=== PATIENT | male | born 1980 | race Caucasian/White ===

== ENCOUNTER 2016-11-08 13:15 | Inpatient (IN) | payer OTHER ==
[2016-11-08 15:16] VITALS: BMI 35.2
--- NOTE | 2016-11-08 16:30 | HP ---
COWS - Scale Resting Pulse: 0= [place] 80 or Below Sweatin=Flushed/Facial Moisture Restless Observation: 1= Difficult to Sit Still Pupil Size: 1= Pupils >than Normal Bone or Joint Aches: 2= Severe Diffuse Aches Runny Nose/ Eye Tearin= Nasal Congestion GI Upset > 30mins: 2= Nausea/Diarrhea Tremor Observation: 1= Tremor [place], Not Seen Yawning Observation: 0= None Anxiety or Irritability: 2=Irritable/Anxious Goose Flesh Skin: 0=Smooth Skin COWS Score: 12 CIWA Score - CIWA Score Nausea/Vomitin Muscle Tremors: 2 Anxiety: 3 Agitation: 3 Paroxysmal Sweats: 3 Orientation: 0-Oriented Tacttile Disturbances: 2-Mild Itch/Numbness/Burn Auditory Disturbances: 0-None Visual Disturbances: 0-None Headache: 0-None Present CIWA-Ar Total Score: 16 Admission ROS BHS - HPI Chief Complaint: I want to stop using drugs and i need help Allergies/Adverse Reactions: Allergies Allergy/AdvReac Type Severity Reaction Status Date / Time No Known Allergies Allergy Verified 11/08/16 16:33 History of Present Illness: 36 y/o m pt with a h/o heroin and alcohol dep. seeking detox. Exam Limitations: No Limitations - Ebola screening Have you traveled outside of the country in the last 21 days: No Have you had contact with anyone from an Ebola affected area: No Have you been sick,other than usual withdrawal symptoms: No Do you have a fever: No - Review of Systems Constitutional: Malaise, Night Sweats, Changes in sleep EENT: reports: Dental Problems (left upper lat incisor pain) Respiratory: reports: No Symptoms reported Cardiac: reports: No Symptoms Reported GI: reports: Nausea : reports: No Symptoms Reported Musculoskeletal: reports: Back Pain, Muscle Pain Integumentary: reports: No Symptoms Reported Endocrine: reports: No Symptoms Reported Hematology: reports: No Symptoms Reported Psychiatric: reports: Anxious, Depressed Other Systems: Reviewed and Negative Patient History - Patient Medical History Hx Anemia: No Hx Asthma: Yes (Currently on tx) Hx Chronic Obstructive Pulmonary Disease (COPD): No Hx Cancer: No Hx Cardiac Disorders: No Hx Congestive Heart Failure: No Hx Hypertension: No Hx Hypercholesterolemia: No Hx Pacemaker: No HX Cerebrovascular Accident: No Hx Seizures: Yes (alcohol/drug related X 1 IN 2006) Hx Diabetes: No Hx Gastrointestinal Disorders: No Hx Liver Disease: No Hx Genitourinary Disorders: No Hx Sexually Transmitted Disorders: No Hx Renal Disease (ESRD): No Hx Thyroid Disease: No Hx Human Immunodeficiency Virus (HIV): No (NEGATIVE 2 YRS AGO) Hx Hepatitis C: No Hx Depression: No Hx Suicide Attempt: No Hx Schizophrenia: No - Patient Surgical History Past Surgical History: Yes Hx Neurologic Surgery: No Hx Cataract Extraction: No Hx Cardiac Surgery: No Hx Lung Surgery: No Hx Breast Surgery: No Hx Breast Biopsy: No Hx Abdominal Surgery: Yes (UMBILLICAL HERNIA REPAIR IN 2009 [facility]) Hx Appendectomy: No Hx Cholecystectomy: No Hx Genitourinary Surgery: No Hx Section: No Hx Orthopedic Surgery: No Other Surgical History: PILONIDIAL CYST REMOVED IN 2004 [facility] Anesthesia Reaction: No - PPD History Date: 02/08/15 Results: 0 mm - Reproductive History Patient is a Female of Child Bearing Age (11 -55 yrs old): No - Smoking Cessation Smoking history: Current every day smoker Have you smoked in the past 12 months: Yes Aproximately how many cigarettes per day: 30 Cigars Per Day: 0 Hx Chewing Tobacco Use: No Initiated information on smoking cessation: Yes 'Breaking Loose' booklet given: 11/08/16 - Substance & Tx. History Hx Alcohol Use: Yes Hx Substance Use: Yes Substance Use Type: Alcohol, Cocaine, Heroin Hx Substance Use Treatment: Yes - Substances Abused Heroin Route: Injection Frequency: Daily Amount used: 10 bags Age of first use: 27 Date of Last Use: 11/08/16 Alcohol Route: Oral Frequency: Daily Amount used: 1/2 qt vodka/ 6 pk beer Age of first use: 14 Date of Last Use: 11/07/16 Crack Route: Smoking Frequency: Daily Amount used: $50 Age of first use: 20 Date of Last Use: 11/05/16 Family Disease History - Family Disease History Family History: Denies Admission Physical Exam BHS - Vital Signs Vital Signs: Vital Signs - 24 hr 11/08/16 15:14 Temperature 97.8 F Pulse Rate 74 Respiratory 20 Rate Blood Pressure 128/77 - Physical General Appearance: Yes: Disheveled, Obese, Sweating, Anxious HEENTM: Yes: EOMI, Hearing grossly Normal, Normocephalic, Normal Voice, MARIBEL, Other (2nd upper incisor dolor) Respiratory: Yes: Chest Non-Tender, Lungs Clear, Normal Breath Sounds, No Respiratory Distress Neck: Yes: Supple, Trachea in good position Breast: Yes: Within Normal Limits Cardiology: Yes: Regular Rhythm, Regular Rate, S1, S2 Abdominal: Yes: Non Tender, Flat, Soft, Increased Bowel Sounds Genitourinary: Yes: Within Normal Limits Back: Yes: Decreased Range of Motion Musculoskeletal: Yes: Back pain, Muscle Pain Neurological: Yes: quality control coordinator II-XII NML intact, Fully Oriented, Alert, Motor Strength 5/5, Normal Response Integumentary: Yes: Track Mccarthy Lymphatic: Yes: Within Normal Limits - Diagnostic (1) Alcohol dependence Current Visit: Yes Status: Chronic Qualifiers: Substance use status: uncomplicated Qualified Code(s): F10.20 - Alcohol dependence, uncomplicated (2) Asthma Current Visit: Yes Status: Chronic (3) Obesity Current Visit: Yes Status: Chronic Qualifiers: Obesity severity: unspecified obesity severity (4) Opiate dependence Current Visit: Yes Status: Chronic Qualifiers: Substance use status: uncomplicated Qualified Code(s): F11.20 - Opioid dependence, uncomplicated (5) Nicotine dependence Current Visit: Yes Status: Chronic Qualifiers: Nicotine product type: cigarettes Substance use status: uncomplicated Qualified Code(s): F17.210 - Nicotine dependence, cigarettes, uncomplicated (6) Toothache Current Visit: Yes Status: Chronic Cleared for Admission S - Detox or Rehab [facility] Level of Care: Medically Managed Detox Regimen/Protocol: Methadone/Librium S Breath Alcohol Content Breath Alcohol Content: 0 Urine Drug Screen - Results Urine Drug Screen Results: THC-Marijuana, BOBBY-Cocaine, OPI-Opiates, BZO- Benzodiazepines, MTD-Methadone, OXY-Oxycodone
[2016-11-08] MEDS ORDERED: guaiFENesin/D-METHORPHAN HB 10 ML UNIT-DOSE CUPS PO PRN (16:34)
[2016-11-08] MEDS ORDERED: MAG HYDROX/AL HYDROX/SIMETH 30 ML UNIT-DOSE CUP PO PRN (16:34)
[2016-11-08] MEDS ORDERED: MAGNESIUM CITRATE 300 ML BOTTLE PO PRN (16:34)
[2016-11-08] MEDS ORDERED: ACETAMINOPHEN 325 MG TABLET (FP) PO PRN (16:34)
[2016-11-08] MEDS ORDERED: hydrOXYzine PAMOATE 25 MG CAPSULE (FP) PO PRN (16:34)
[2016-11-08] MEDS ORDERED: MAGNESIUM HYDROX 2400MG/30ML ORAL SUSPENSION 30 ML CUP PO PRN (16:34)
[2016-11-08] MEDS ORDERED: MENTHOL/PHENOL 1 EACH UD MM PRN (16:34)
[2016-11-08] MEDS ORDERED: P-EPHED 60MG/TRIPROLIDI 2.5MG TABLET PO PRN (16:34)
[2016-11-08] MEDS ORDERED: LIDOCAINE VISCOUS 2% ORAL/TOP 20 ML UNIT-DOSE CUP MM PRN (16:56)
[2016-11-08] MEDS: chlordiazePOXIDE HCL 25 MG CAPSULE PO PRN (18:22)
[2016-11-08] MEDS ORDERED: METHADONE HCL 10 MG TABLET (FOR DETOX USE ONLY) PO ONE ×2 (18:30→23:00)
[2016-11-08] MEDS: THIAMINE HCL 100 MG TABLET (FP) PO SCH (22:16)
[2016-11-08] MEDS: diphenhydrAMINE HCL 50 MG CAPSULE PO PRN (22:16)
[2016-11-08] MEDS: chlordiazePOXIDE HCL 25 MG CAPSULE PO SCH (22:17)
[2016-11-09] MEDS: chlordiazePOXIDE HCL 25 MG CAPSULE PO SCH ×4 (05:37→23:01)
[2016-11-09] MEDS: chlordiazePOXIDE HCL 25 MG CAPSULE PO PRN ×3 (07:20→19:25)
[2016-11-09] MEDS ORDERED: TRIMETHOBENZAMIDE HCL 200MG/2ML INJ IM PRN (09:04)
[2016-11-09] MEDS ORDERED: METHADONE HCL 10 MG TABLET (FOR DETOX USE ONLY) PO SCH (10:00)
[2016-11-09 10:05] LABS: MCH 31.2 pg (25.7-33.7); MCHC 34.3 g/dl (32.0-35.9); PLATELET COUNT 397 K/MM3 (134-434); RDW 13.2 % (11.9-15.9); WHITE BLOOD COUNT 9.2 K/mm3 (4.0-10.0)
--- NOTE | 2016-11-09 10:10 | PN ---
[facility] CIWA - CIWA Score Nausea/Vomitin Muscle Tremors: 3 Anxiety: 3 Agitation: 3 Paroxysmal Sweats: 1-Minimal Palms Moist Orientation: 0-Oriented Tacttile Disturbances: 1-Very Mild Itch/Numbness Auditory Disturbances: 1-Very Mild Visual Disturbances: 1-Very Mild Sensitivity Headache: 2-Mild CIWA-Ar Total Score: 18 BHS COWS - Scale Resting Pulse: 2= [place] 101-120 Sweatin=Flushed/Facial Moisture Restless Observation: 3= Extraneous Movement Pupil Size: 1= Pupils >than Normal Bone or Joint Aches: 2= Severe Diffuse Aches Runny Nose/ Eye Tearin= Runny Nose/Eyes GI Upset > 30mins: 3= Vomiting/Diarrhea Tremor Observation of Outstretched Hands: 2= Slight Tremor Visible Yawning Observation: 1= 1-2x During Session Anxiety or Irritability: 2=Irritable/Anxious Goose Flesh Skin: 0=Smooth Skin COWS Score: 20 S Progress Note (SOAP) Subjective: ALERT,IRRITABLE,ANXIOUS,INTERRUPTED SLEEP,TREMOR,PAIN IN THE BODY AND BACK, VOMITING Objective: 11/09/16 10:07 Vital Signs Temperature 98.4 F 11/09/16 09:51 Pulse Rate 66 11/09/16 09:51 Respiratory Rate 20 11/09/16 09:51 Blood Pressure 123/80 11/09/16 09:51 O2 Sat by Pulse Oximetry (%) EKG NSR,NORMAL ECG LABS PENDING Assessment: 11/09/16 10:09 WITHDRAWAL SYMPTOM Plan: CONTINUE DETOX
[2016-11-09 10:11] LABS: ANION GAP 5 (8-16); CALCIUM 9.5 mg/dL (8.5-10.1); CO2 29 mmol/L (21-32); GLUCOSE,RANDOM 86 mg/dL (74-106)
[2016-11-09 10:15] LABS: ALK PHOS 135 U/L (45-117); BILIRUBIN,TOTAL 0.4 mg/dL (0.2-1.0); CREATININE 0.9 mg/dL (0.7-1.3); SGOT/AST 12 U/L (15-37); SGPT/ALT 21 U/L (12-78); TOT PROT 7.5 g/dl (6.4-8.2)
--- NOTE | 2016-11-09 10:23 | EKG ---
Test Reason : Blood Pressure : / mmHG Vent. Rate : 073 BPM Atrial Rate : 073 BPM P-R Int : 162 ms QRS Dur : 094 ms QT Int : 392 ms P-R-T Axes : 054 006 045 degrees QTc Int : 431 ms NORMAL SINUS RHYTHM NORMAL ECG NO PREVIOUS ECGS AVAILABLE Confirmed by DEMETRI CABRAL, LEX ([id number]) on 11/09/2016 10:23:42 AM Referred By: Confirmed By:LEX MOSQUERA MD
[2016-11-09] MEDS: PRENATAL VITAMINS W/ FOLIC ACID TABLET (FP) PO SCH (10:39)
[2016-11-09] MEDS: CYCLOBENZAPRINE HCL 10 MG TABLET (FP) PO PRN (10:40)
[2016-11-09] MEDS: NICOTINE 14 MG/24 HOURS TOPICAL PATCH TD SCH (10:41)
[2016-11-09] MEDS: LOPERAMIDE HCL 2 MG CAPSULE PO PRN ×2 (10:49→17:02)
[2016-11-09] MEDS ORDERED: INFLUENZA VACCINE 45 MCG/0.5 ML (MDV 16-17) IM ONE (12:00)
--- NOTE | 2016-11-09 12:54 | CONSULT ---
[facility] Psychiatric Consult - Data Date of interview: 11/09/16 Admission source: [facility] Identifying data: Readmission to [facility] for this 36 y/o male seeking detox treatment on for heroin and cocaine dependence.Patient is single without children,domiciled and unemployed. Substance Abuse History: - Smoking Cessation. Smoking history: Current every day smoker. Have you smoked in the past 12 months: Yes. Aproximately how many cigarettes per day: 30. Cigars Per Day: 0. Hx Chewing Tobacco Use: No. Initiated information on smoking cessation: Yes. 'Breaking Loose' booklet given : 11/08/16. - Substance & Tx. History. Hx Alcohol Use: Yes. Hx Substance Use : Yes. Substance Use Type: Alcohol, Cocaine, Heroin. Hx Substance Use Treatment: Yes. - Substances Abused. Heroin. Route: Injection. Frequency : Daily. Amount used: 10 bags. Age of first use: 27. Date of Last Use: . Alcohol. Route: Oral. Frequency: Daily. Amount used: 1/2 qt vodka/ 6 pk beer. Age of first use: 14. Date of Last Use: 11/07/16. Crack. Route: Smoking. Frequency: Daily. Amount used: $50. Age of first use: 20. Date of Last Use: 11/05/16. Confirmed by patient. Medical History: Remarkable for a history of bronchial asthma,seizure disorder ( drug related) and umbilical herniorraphy (2010). Psychiatric History: Diagnosed with MDD and ADHD.No reported history of psychiatric hospitalizations.Mr Aranda indicates that he has no contact with psychiatrists and that he relies on his primary care physician for medications refills.No history of suicide attempts. Physical/Sexual Abuse/Trauma History: Patient denies. Additional Comment: Urine Drug Screen Results: THC-Marijuana, BOBBY-Cocaine, OPI- Opiates, BZO-Benzodiazepines, MTD-Methadone, OXY-Oxycodone.Noted. Mental Status Exam - Mental Status Exam Alert and Oriented to: Time, Place, Person Cognitive Function: Good Patient Appearance: Well Groomed Mood: Hopeful, Euthymic Affect: Appropriate, Normal Range Patient Behavior: Fatigued, Appropriate, Cooperative Speech Pattern: Clear Voice Loudness: Normal Thought Process: Goal Oriented Thought Disorder: Not Present Hallucinations: Denies Suicidal Ideation: Denies Homicidal Ideation: Denies Insight/Judgement: Fair Sleep: Fair Appetite: Good Muscle strength/Tone: Normal Gait/Station: Normal Psychiatric Findings - Problem List ([place] 1, 2,3) (1) Alcohol dependence Current Visit: Yes Status: Acute Qualifiers: Substance use status: uncomplicated Qualified Code(s): F10.20 - Alcohol dependence, uncomplicated (2) Opiate dependence Current Visit: Yes Status: Acute Qualifiers: Substance use status: uncomplicated Qualified Code(s): F11.20 - Opioid dependence, uncomplicated (3) Sedative dependence Current Visit: Yes Status: Active (4) Marijuana dependence Current Visit: Yes Status: Acute (5) Nicotine dependence Current Visit: Yes Status: Chronic Qualifiers: Nicotine product type: cigarettes Substance use status: uncomplicated Qualified Code(s): F17.210 - Nicotine dependence, cigarettes, uncomplicated (6) Cocaine dependence Current Visit: Yes Status: Acute (7) ADHD (attention deficit hyperactivity disorder) Current Visit: Yes Status: Chronic Comment: Self-report. (8) Depressive disorder Current Visit: Yes Status: Chronic Comment: Self-report. (9) Asthma Current Visit: Yes Status: Chronic (10) Obesity Current Visit: Yes Status: Chronic Qualifiers: Obesity severity: unspecified obesity severity - Initial Treatment Plan Initial Treatment Plan: Psychoeducation.Detoxification.Wellbutrin XL 300 mg po daily.Adderall not formulary.Will switch to ritalin as an alternate if patient allows.Side effects/benefits discussed with patient.Made aware of risk of seizures (wellbutrin).Patient agrees with plan.Observation.
[2016-11-09] MEDS: IBUPROFEN 400 MG TABLET (FP) PO PRN (13:13)
[2016-11-09 14:09] LABS: PH,URINE 7.5 (5.0-8.0); URINE APPEARANCE CLEAR; URINE BILIRUBIN NEGATIVE (NEGATIVE); URINE BLOOD NEGATIVE (NEGATIVE); URINE COLOR YELLOW; URINE GLUCOSE (UA) NEGATIVE (NEGATIVE); URINE KETONE TRACE (NEGATIVE); URINE LEUK ESTERASE NEGATIVE (NEGATIVE); URINE NITRITE NEGATIVE (NEGATIVE); URINE PROTEIN TRACE (NEGATIVE); URINE UROBILINOGEN 0.2 E.U/dl E.U./dl (0.2-1.0)
[2016-11-09 14:24] LABS: HIV 1 & 2 AB NEGATIVE; HIV 1 AGp24 NEGATIVE
[2016-11-09] MEDS: NICOTINE POLACRILEX 4 MG GUM BC PRN (19:23)
[2016-11-09] MEDS: cloNIDine HCL 0.1 MG TABLET PO SCH (23:00)
[2016-11-09] MEDS: THIAMINE HCL 100 MG TABLET (FP) PO SCH (23:01)
[2016-11-10] MEDS: chlordiazePOXIDE HCL 25 MG CAPSULE PO SCH ×3 (05:48→17:16)
[2016-11-10] MEDS: IBUPROFEN 400 MG TABLET (FP) PO PRN ×2 (05:51→17:15)
[2016-11-10] MEDS: LOPERAMIDE HCL 2 MG CAPSULE PO PRN (05:51)
[2016-11-10] MEDS: METHYLPHENIDATE HCL 5 MG TABLET PO SCH ×2 (07:06→13:17)
[2016-11-10] MEDS: chlordiazePOXIDE HCL 25 MG CAPSULE PO PRN ×2 (08:46→13:17)
[2016-11-10] MEDS ORDERED: ONDANSETRON *ODT* 4 MG TABLET SL PRN (09:02)
--- NOTE | 2016-11-10 10:35 | PN ---
[facility] CIWA - CIWA Score Nausea/Vomitin Muscle Tremors: 3 Anxiety: 3 Agitation: 2 Paroxysmal Sweats: 1-Minimal Palms Moist Orientation: 0-Oriented Tacttile Disturbances: 1-Very Mild Itch/Numbness Auditory Disturbances: 1-Very Mild Visual Disturbances: 1-Very Mild Sensitivity Headache: 2-Mild CIWA-Ar Total Score: 17 BHS COWS - Scale Resting Pulse: 1= [place] 81-100 Sweatin= Chills/Flushing Restless Observation: 3= Extraneous Movement Pupil Size: 1= Pupils >than Normal Bone or Joint Aches: 2= Severe Diffuse Aches Runny Nose/ Eye Tearin= Runny Nose/Eyes GI Upset > 30mins: 3= Vomiting/Diarrhea Tremor Observation of Outstretched Hands: 2= Slight Tremor Visible Yawning Observation: 1= 1-2x During Session Anxiety or Irritability: 2=Irritable/Anxious Goose Flesh Skin: 0=Smooth Skin COWS Score: 18 [facility] Progress Note (SOAP) Subjective: ALERT,IRRITABLE,ANXIOUS,INTERRUPTED SLEEP,TREMOR,PAIN IN THE BODY AND BACK Objective: 11/10/16 10:34 Vital Signs Temperature 97.7 F 11/10/16 10:23 Pulse Rate 91 H 11/10/16 10:23 Respiratory Rate 20 11/10/16 10:23 Blood Pressure 118/75 11/10/16 10:23 O2 Sat by Pulse Oximetry (%) Laboratory Last Values WBC 9.2 K/mm3 (4.0-10.0) D 11/09/16 06:00 RBC 4.50 M/mm3 (4.00-5.60) 11/09/16 06:00 Hgb 14.0 GM/dL (11.7-16.9) 11/09/16 06:00 Hct 41.0 % (35.4-49) 11/09/16 06:00 MCV 91.0 fl (80-96) 11/09/16 06:00 MCHC 34.3 g/dl (32.0-35.9) 11/09/16 06:00 RDW 13.2 % (11.9-15.9) 11/09/16 06:00 Plt Count 397 K/MM3 (134-434) 11/09/16 06:00 MPV 8.0 fl (7.5-11.1) 11/09/16 06:00 Sodium 138 mmol/L (136-145) 11/09/16 06:00 Potassium 3.7 mmol/L (3.5-5.1) 11/09/16 06:00 Chloride 104 mmol/L (98-107) 11/09/16 06:00 Carbon Dioxide 29 mmol/L (21-32) 11/09/16 06:00 Anion Gap 5 (8-16) L 11/09/16 06:00 BUN 10 mg/dL (7-18) 11/09/16 06:00 Creatinine 0.9 mg/dL (0.7-1.3) 11/09/16 06:00 Creat Clearance w eGFR > 60 (>60) 11/09/16 06:00 Random Glucose 86 mg/dL (74-106) 11/09/16 06:00 Calcium 9.5 mg/dL (8.5-10.1) 11/09/16 06:00 Total Bilirubin 0.4 mg/dL (0.2-1.0) 11/09/16 06:00 AST 12 U/L (15-37) L D 11/09/16 06:00 ALT 21 U/L (12-78) D 11/09/16 06:00 Alkaline Phosphatase 135 U/L (45-117) H 11/09/16 06:00 Total Protein 7.5 g/dl (6.4-8.2) 11/09/16 06:00 Albumin 4.0 g/dl (3.4-5.0) 11/09/16 06:00 Urine Color Yellow 11/09/16 12:00 Urine Appearance Clear 11/09/16 12:00 Urine pH 7.5 (5.0-8.0) D 11/09/16 12:00 Ur Specific [place] 1.025 (1.001-1.035) 11/09/16 12:00 Urine Protein Trace (NEGATIVE) H 11/09/16 12:00 Urine Glucose (UA) Negative (NEGATIVE) 11/09/16 12:00 Urine Ketones Trace (NEGATIVE) H 11/09/16 12:00 Urine Blood Negative (NEGATIVE) 11/09/16 12:00 Urine Nitrite Negative (NEGATIVE) 11/09/16 12:00 Urine Bilirubin Negative (NEGATIVE) 11/09/16 12:00 Urine Urobilinogen 0.2 e.u/dl E.U./dl (0.2-1.0) 11/09/16 12:00 Ur Leukocyte Esterase Negative (NEGATIVE) 11/09/16 12:00 RPR Titer Nonreactive (NONREACTIVE) 11/09/16 06:00 HIV 1&2 Antibody Screen Negative 11/09/16 11:55 HIV P24 Antigen Negative 11/09/16 11:55 Assessment: 11/10/16 10:35 WITHDRAWAL SYMPTOM Plan: CONTINUE DETOX
[2016-11-10] MEDS: NICOTINE 14 MG/24 HOURS TOPICAL PATCH TD SCH (10:56)
[2016-11-10] MEDS: METHADONE HCL 5 MG TABLET (FOR DETOX USE ONLY) PO SCH (10:56)
[2016-11-10] MEDS: cloNIDine HCL 0.1 MG TABLET PO SCH ×2 (10:56→22:42)
[2016-11-10] MEDS: PRENATAL VITAMINS W/ FOLIC ACID TABLET (FP) PO SCH (10:56)
[2016-11-10] MEDS: NICOTINE POLACRILEX 4 MG GUM BC PRN ×3 (11:07→17:16)
[2016-11-10] MEDS: CYCLOBENZAPRINE HCL 10 MG TABLET (FP) PO PRN ×2 (13:17→22:44)
[2016-11-10] MEDS: THIAMINE HCL 100 MG TABLET (FP) PO SCH (22:42)
[2016-11-10] MEDS: chlordiazePOXIDE 5 MG CAPSULE PO SCH (22:42)
[2016-11-10] MEDS: diphenhydrAMINE HCL 50 MG CAPSULE PO PRN (22:45)
[2016-11-11] MEDS: chlordiazePOXIDE 5 MG CAPSULE PO SCH ×2 (05:17→10:29)
[2016-11-11] MEDS: CYCLOBENZAPRINE HCL 10 MG TABLET (FP) PO PRN (05:18)
[2016-11-11] MEDS: METHYLPHENIDATE HCL 5 MG TABLET PO SCH ×2 (07:34→08:26)
[2016-11-11] MEDS: METHADONE HCL 5 MG TABLET (FOR DETOX USE ONLY) PO SCH (10:29)
[2016-11-11] MEDS: cloNIDine HCL 0.1 MG TABLET PO SCH (10:29)
[2016-11-11] MEDS: PRENATAL VITAMINS W/ FOLIC ACID TABLET (FP) PO SCH (10:29)
[2016-11-11] MEDS: NICOTINE POLACRILEX 4 MG GUM BC PRN (10:30)
[2016-11-11] MEDS: NICOTINE 14 MG/24 HOURS TOPICAL PATCH TD SCH (10:30)
--- NOTE | 2016-11-11 12:35 | DS ---
[facility] Detox Discharge Summary Admission Date: 11/08/16 Discharge Date: 11/11/16 - History Present History: Alcohol Dependence, Cannabis Dependence, Opioid Dependence Pertinent Past History: ASTHMA ADHD OBESITY - Physical Exam Results Vital Signs: Vital Signs Temperature 96.6 F L 11/11/16 09:41 Pulse Rate 64 11/11/16 09:41 Respiratory Rate 18 11/11/16 09:41 Blood Pressure 115/77 11/11/16 09:41 O2 Sat by Pulse Oximetry (%) Pertinent Admission Physical Exam Findings: WITHDRAWAL SX. Vital Signs - 8 hr 11/11/16 11/11/16 06:30 09:41 Temperature 96.1 F L 96.6 F L Pulse Rate 64 64 Respiratory 18 18 Rate Blood Pressure 131/90 115/77 Laboratory Tests 11/09/16 11/09/16 11/09/16 06:00 06:00 06:00 WBC 9.2 D RBC 4.50 Hgb 14.0 Hct 41.0 MCV 91.0 MCHC 34.3 RDW 13.2 Plt Count 397 MPV 8.0 Sodium 138 Potassium 3.7 Chloride 104 Carbon Dioxide 29 Anion Gap 5 L BUN 10 Creatinine 0.9 Creat Clearance w eGFR > 60 Random Glucose 86 Calcium 9.5 Total Bilirubin 0.4 AST 12 L D ALT 21 D Alkaline Phosphatase 135 H Total Protein 7.5 Albumin 4.0 Urine Color Urine Appearance Urine pH Ur Specific [place] Urine Protein Urine Glucose (UA) Urine Ketones Urine Blood Urine Nitrite Urine Bilirubin Urine Urobilinogen Ur Leukocyte Esterase RPR Titer Nonreactive HIV 1&2 Antibody Screen HIV P24 Antigen 11/09/16 11/09/16 11:55 12:00 WBC RBC Hgb Hct MCV MCHC RDW Plt Count MPV Sodium Potassium Chloride Carbon Dioxide Anion Gap BUN Creatinine Creat Clearance w eGFR Random Glucose Calcium Total Bilirubin AST ALT Alkaline Phosphatase Total Protein Albumin Urine Color Yellow Urine Appearance Clear Urine pH 7.5 D Ur Specific [place] 1.025 Urine Protein Trace H Urine Glucose (UA) Negative Urine Ketones Trace H Urine Blood Negative Urine Nitrite Negative Urine Bilirubin Negative Urine Urobilinogen 0.2 e.u/dl Ur Leukocyte Esterase Negative RPR Titer HIV 1&2 Antibody Screen Negative HIV P24 Antigen Negative LABS NOTED - Medication Discharge Medications: Ambulatory Orders Albuterol Sulfate Inhaler - [Ventolin Hfa Inhaler -] 2 inh PO Q4H PRN 11/08/16 Alprazolam [Xanax] 1 mg PO QID 11/08/16 Bupropion HCl [Wellbutrin Xl -] 300 mg PO DAILY 11/08/16 Dextroamphetamine/Amphetamine [Adderall 10 mg Tablet] 30 mg PO TID 11/08/16 Bupropion HCl [Wellbutrin Xl] 300 mg PO DAILY #30 tab.er.24h 11/09/16 - Diagnosis (1) ADHD (attention deficit hyperactivity disorder) Current Visit: Yes Status: Chronic (2) Asthma Current Visit: Yes Status: Chronic (3) Obesity Current Visit: Yes Status: Chronic Qualifiers: Obesity severity: unspecified obesity severity (4) Alcohol dependence with uncomplicated withdrawal Current Visit: Yes Status: Acute (5) Opioid dependence with withdrawal Current Visit: Yes Status: Acute - AMA Did Patient Leave Against Medical Advice: Yes
[2016-11-11 13:16] VITALS: BP 128/78; PULSE 65; TEMP 99.3
[2016-11-11] MEDS ORDERED: chlordiazePOXIDE HCL 10 MG CAPSULE PO SCH (23:00)
[2016-11-12] MEDS ORDERED: METHADONE HCL 10 MG TABLET (FOR DETOX USE ONLY) PO SCH (10:00)
[2016-11-13] MEDS ORDERED: METHADONE HCL 5 MG TABLET (FOR DETOX USE ONLY) PO SCH (06:00)
== END 2016-11-11 12:40 | disposition left against medical advice (07) | DRG 770 ==
LOC: YASAS 13:15 → Y3N 17:18
PROVIDERS: ADMIT Internal Medicine; ATTEND Internal Medicine
PROC: HZ2ZZZZ Detoxification Services for Substance Abuse Treatment (ICD-10-PCS; principal; 2016-11-08)
DX: F11.23 Opioid dependence with withdrawal (principal); F10.230 Alcohol dependence with withdrawal, uncomplicated; F13.20 Sedative, hypnotic or anxiolytic dependence, uncomplicated; F14.20 Cocaine dependence, uncomplicated; F12.20 Cannabis dependence, uncomplicated; F17.210 Nicotine dependence, cigarettes, uncomplicated; F90.9 Attention-deficit hyperactivity disorder, unspecified type; F32.9 Major depressive disorder, single episode, unspecified; J45.909 Unspecified asthma, uncomplicated; E66.9 Obesity, unspecified; Z68.35 Body mass index [BMI] 35.0-35.9, adult; Z86.69 Personal history of other diseases of the nervous system and sense organs; K08.89 Other specified disorders of teeth and supporting structures
CPT/HCPCS: 36415; 80053; 81003; 85027; 86593; 87389; 93005; 93010

== ENCOUNTER 2017-01-22 11:48 | Inpatient (IN) | payer OTHER ==
[2017-01-22 12:22] VITALS: BMI 35.3
--- NOTE | 2017-01-22 14:35 | HP ---
COWS - Scale Resting Pulse: 1= [place] 81-100 Sweatin= Chills/Flushing Restless Observation: 3= Extraneous Movement Pupil Size: 1= Pupils >than Normal Bone or Joint Aches: 2= Severe Diffuse Aches Runny Nose/ Eye Tearin= None GI Upset > 30mins: 3= Vomiting/Diarrhea Tremor Observation: 2= Slight Tremor Visible Yawning Observation: 1= 1-2x During Session Anxiety or Irritability: 2=Irritable/Anxious Goose Flesh Skin: 3=Piloerection COWS Score: 19 CIWA Score - CIWA Score Nausea/Vomitin Muscle Tremors: 3 Anxiety: 3 Agitation: 4-Moderately Restless Paroxysmal Sweats: 3 Orientation: 0-Oriented Tacttile Disturbances: 3-Moderate Itch/Numb/Burn Auditory Disturbances: 2-Mild Harshness/Frighten Visual Disturbances: 0-None Headache: 2-Mild CIWA-Ar Total Score: 25 Admission ROS BHS - HPI Chief Complaint: "I need to get this monkey off my back. I am just tired of being this way." Pt. is here to Detox from Alcohol and Heroin. Allergies/Adverse Reactions: Allergies Allergy/AdvReac Type Severity Reaction Status Date / Time No Known Allergies Allergy Verified 01/22/17 12:55 History of Present Illness: Pt. is a 36 YO male here to Detox from Alcohol and Heroin. Pt. has had several previous Detox admissions at [facility]. Pt. also uses Cocaine on a daily basis. Exam Limitations: No Limitations - Ebola screening Have you traveled outside of the country in the last 21 days: No Have you had contact with anyone from an Ebola affected area: No Have you been sick,other than usual withdrawal symptoms: No Do you have a fever: No - Review of Systems Constitutional: Chills, Diaphoresis, Fever, Malaise, Night Sweats, Changes in sleep EENT: reports: Other (4 Broken teeth.) Respiratory: reports: Productive cough (Occasional.) Cardiac: reports: No Symptoms Reported GI: reports: Diarrhea, Nausea, Vomiting, Other (Difficulty chewing due to Broken teeth.) : reports: No Symptoms Reported Musculoskeletal: reports: Back Pain, Joint Stiffness Integumentary: reports: No Symptoms Reported Neuro: reports: Headache, Numbness (Radiates Down Right Leg.), Tingling ( Radiates Down Right Leg.), Tremors Endocrine: reports: No Symptoms Reported Hematology: reports: No Symptoms Reported Psychiatric: reports: Judgement Intact, Mood/Affect Appropiate, Orientated x3, Anxious, Depressed (On meds.) Other Systems: Reviewed and Negative Patient History - Patient Medical History Hx Anemia: No Hx Asthma: Yes (Uses Albuterol Inhaler.) Hx Chronic Obstructive Pulmonary Disease (COPD): No Hx Cancer: No Hx Cardiac Disorders: No Hx Congestive Heart Failure: No Hx Hypertension: No Hx Hypercholesterolemia: No Hx Pacemaker: No HX Cerebrovascular Accident: No Hx Seizures: No Hx Dementia: No Hx Diabetes: No Hx Gastrointestinal Disorders: No Hx Liver Disease: No Hx Genitourinary Disorders: No Hx Sexually Transmitted Disorders: No Hx Renal Disease (ESRD): No Hx Thyroid Disease: No Hx Human Immunodeficiency Virus (HIV): No (Last Tested: 10/2016: NEGATIVE) Hx Hepatitis C: No (Last Tested: 10/2016: NEGATIVE) Hx Depression: Yes (On med.) Hx Suicide Attempt: No (PATIENT DENIES CURRENT SI / HI.) Hx Bipolar Disorder: No Hx Schizophrenia: No Other Medical History: Pleural Effusion w/ Pneumonia: 08/2013-09/2013, Treated. - Patient Surgical History Past Surgical History: Yes Hx Neurologic Surgery: No Hx Cataract Extraction: No Hx Cardiac Surgery: No Hx Lung Surgery: No (Intubation, Chest Tube: 2012.) Hx Breast Surgery: No Hx Breast Biopsy: No Hx Abdominal Surgery: Yes (UMBILLICAL HERNIA REPAIR IN 2009 [facility]) Hx Appendectomy: No Hx Cholecystectomy: No Hx Genitourinary Surgery: No Hx Section: No Hx Orthopedic Surgery: No Other Surgical History: PILONIDIAL CYST REMOVED IN 2004 [place] Anesthesia Reaction: No - PPD History Previous Implant?: Yes Documented Results: Negative w/o proof Implanted On Prior R Admission?: Yes Date: 02/08/15 Results: 0 mm PPD to be Administered?: Yes - Reproductive History Patient is a Female of Child Bearing Age (11 -55 yrs old): No (PATIENT IS MALE.) - Smoking Cessation Smoking history: Current every day smoker Have you smoked in the past 12 months: Yes Aproximately how many cigarettes per day: 10 Cigars Per Day: 0 Hx Chewing Tobacco Use: No Initiated information on smoking cessation: Yes 'Breaking Loose' booklet given: 03/26/17 (GIVEN ON UNIT.) - Substance & Tx. History Hx Alcohol Use: Yes Hx Substance Use: Yes Substance Use Type: Alcohol, Cocaine, Heroin, Prescribed (Xanax: 1 mg QID; Vicodin: 10 mg QID.) Hx Substance Use Treatment: Yes - Substances Abused Heroin Route: Injection Frequency: Daily Amount used: 3-4 bags Age of first use: 27 Date of Last Use: 01/22/17 Crack Route: Smoking Frequency: 1-3 times last 30 days Amount used: $100 Age of first use: 17 Date of Last Use: 01/19/17 Alcohol Route: Oral Frequency: 3-6 times per week Amount used: beer 12 oz, 6-12 pack Age of first use: 15 Date of Last Use: 01/20/17 Family Disease History - Family Disease History Family Disease History: Diabetes: Grandparent (Alzheimer's Dementia), Sister ( Gestational DM only.), Other: Grandparent Admission Physical Exam S - Vital Signs Vital Signs: Vital Signs - 24 hr 01/22/17 12:19 Temperature 97.2 F L Pulse Rate 88 Respiratory 18 Rate Blood Pressure 128/80 - Physical General Appearance: Yes: Nourished, Appropriately Dressed, Mild Distress, Tremorous, Anxious HEENTM: Yes: Hearing grossly Normal, Normocephalic, Normal Voice, MARIBEL, Pharynx Normal Respiratory: Yes: Chest Non-Tender, Lungs Clear, No Respiratory Distress Neck: Yes: No masses,lesions,Nodules, Supple, Trachea in good position Breast: Yes: Breast Exam Deferred Cardiology: Yes: Regular Rhythm, Regular Rate, S1, S2 Abdominal: Yes: Normal Bowel Sounds, Non Tender, Soft, Protuberent Genitourinary: Yes: Within Normal Limits Back: Yes: Decreased Range of Motion Musculoskeletal: Yes: Gait Steady, Back pain, Muscle Pain Extremities: Yes: Tremors Neurological: Yes: Fully Oriented, Alert, Normal Mood/Affect, Normal Response Integumentary: Yes: Normal Color, Dry, Warm, Track Mccarthy (Right Forearm and hand , No signs of infection noted at any site.) Lymphatic: Yes: Within Normal Limits - Diagnostic (1) Opioid dependence with withdrawal Current Visit: Yes Status: Acute (2) ADHD (attention deficit hyperactivity disorder) Current Visit: Yes Status: Chronic Qualifiers: Attention deficit-hyperactivity disorder type: unspecified Qualified Code(s): F90.9 - Attention-deficit hyperactivity disorder, unspecified type Comment: Self-report. (3) Asthma Current Visit: Yes Status: Chronic (4) Depressive disorder Current Visit: Yes Status: Chronic Comment: Self-report. (5) Nicotine dependence Current Visit: Yes Status: Chronic Qualifiers: Nicotine product type: cigarettes Substance use status: uncomplicated Qualified Code(s): F17.210 - Nicotine dependence, cigarettes, uncomplicated (6) Obesity Current Visit: Yes Status: Chronic Qualifiers: Obesity severity: unspecified obesity severity (7) Broken teeth Current Visit: Yes Status: Acute Qualifiers: Encounter type: initial encounter Fracture type: closed Qualified Code(s): S02.5XXA - Fracture of tooth (traumatic), initial encounter for closed fracture (8) Herniation of lumbar intervertebral disc with radiculopathy Current Visit: Yes Status: Chronic (9) Alcohol use disorder Current Visit: Yes Status: Chronic (10) Sedative, hypnotic or anxiolytic dependence with withdrawal, uncomplicated Current Visit: Yes Status: Acute (11) Cocaine dependence, uncomplicated Current Visit: Yes Status: Acute Cleared for Admission [facility] - Detox or Rehab [facility] Level of Care: Medically Managed (ADVISED PATIENT TO FOLLOW-UP WITH BRICK SETTER OPERATOR / REHAB MEDICAL PROVIDER AFTER DISCHARGE FROM DETOX FOR GNERAL MEDICAL ASSESSMENT. ) Detox Regimen/Protocol: Methadone/Valium S Breath Alcohol Content Breath Alcohol Content: 0 Urine Drug Screen - Results Drug Screen Negative: No Urine Drug Screen Results: THC-Marijuana, BOBBY-Cocaine, OPI-Opiates, BZO- Benzodiazepines, MTD-Methadone, OXY-Oxycodone
[2017-01-22] MEDS ORDERED: IBUPROFEN 400 MG TABLET (FP) PO PRN (15:33)
[2017-01-22] MEDS ORDERED: MAGNESIUM HYDROX 2400MG/30ML ORAL SUSPENSION 30 ML CUP PO PRN (15:33)
[2017-01-22] MEDS ORDERED: LOPERAMIDE HCL 2 MG CAPSULE PO PRN (15:33)
[2017-01-22] MEDS ORDERED: MAGNESIUM CITRATE 300 ML BOTTLE PO PRN (15:33)
[2017-01-22] MEDS ORDERED: P-EPHED 60MG/TRIPROLIDI 2.5MG TABLET PO PRN (15:33)
[2017-01-22] MEDS ORDERED: guaiFENesin/D-METHORPHAN HB 10 ML UNIT-DOSE CUPS PO PRN (15:33)
[2017-01-22] MEDS ORDERED: diphenhydrAMINE HCL 50 MG CAPSULE PO PRN (15:33)
[2017-01-22] MEDS ORDERED: METHADONE HCL 10 MG TABLET (FOR DETOX USE ONLY) PO ONE ×2 (15:33→23:00)
[2017-01-22] MEDS ORDERED: diazePAM 5 MG TABLET PO ONE (15:33)
[2017-01-22] MEDS ORDERED: MENTHOL/PHENOL 1 EACH UD MM PRN (15:33)
[2017-01-22] MEDS ORDERED: ACETAMINOPHEN 325 MG TABLET (FP) PO PRN (15:33)
[2017-01-22] MEDS ORDERED: diazePAM 5 MG TABLET PO PRN (15:33)
[2017-01-22] MEDS ORDERED: MAG HYDROX/AL HYDROX/SIMETH 30 ML UNIT-DOSE CUP PO PRN (15:33)
[2017-01-22] MEDS ORDERED: hydrOXYzine PAMOATE 50 MG CAPSULE (FP) PO PRN (15:33)
[2017-01-22] MEDS ORDERED: CYCLOBENZAPRINE HCL 10 MG TABLET (FP) PO PRN (15:42)
[2017-01-22] MEDS ORDERED: ALBUTEROL SO4 6.7 GM HFA INHALER IH PRN (15:44)
[2017-01-22] MEDS ORDERED: TUBERCULIN PPD 5 TU/0.1ML VIAL ID ONE (16:38)
[2017-01-22] MEDS: NICOTINE POLACRILEX 2 MG GUM BC PRN ×3 (17:01→22:34)
[2017-01-22] MEDS: NICOTINE 21 MG/24 HOURS TOPICAL PATCH TD SCH (17:05)
[2017-01-22 17:27] LABS: URINE APPEARANCE CLEAR; URINE BILIRUBIN NEGATIVE (NEGATIVE); URINE BLOOD NEGATIVE (NEGATIVE); URINE COLOR DKYELLOW; URINE GLUCOSE (UA) NEGATIVE (NEGATIVE); URINE KETONE NEGATIVE (NEGATIVE); URINE LEUK ESTERASE NEGATIVE (NEGATIVE); URINE NITRITE NEGATIVE (NEGATIVE); URINE PROTEIN NEGATIVE (NEGATIVE); URINE UROBILINOGEN NEGATIVE E.U./dl (0.2-1.0)
[2017-01-22] MEDS ORDERED: THIAMINE HCL 100 MG TABLET (FP) PO SCH (22:00)
[2017-01-22] MEDS: diazePAM 5 MG TABLET PO SCH (22:31)
[2017-01-23] MEDS: diazePAM 5 MG TABLET PO SCH (05:41)
[2017-01-23 09:50] LABS: MCH 30.2 pg (25.7-33.7); MCHC 33.5 g/dl (32.0-35.9); MEAN CELL VOLUME 90.2 fl (80-96); PLATELET COUNT 283 K/MM3 (134-434); WHITE BLOOD COUNT 4.4 K/mm3 (4.0-10.0)
[2017-01-23] MEDS ORDERED: PRENATAL VITAMINS W/ FOLIC ACID TABLET (FP) PO SCH (10:00)
[2017-01-23] MEDS ORDERED: METHADONE HCL 10 MG TABLET (FOR DETOX USE ONLY) PO SCH (10:00)
[2017-01-23] MEDS ORDERED: ONDANSETRON *ODT* 4 MG TABLET SL PRN (10:04)
[2017-01-23] MEDS ORDERED: chlordiazePOXIDE HCL 25 MG CAPSULE PO PRN (10:13)
--- NOTE | 2017-01-23 10:13 | PN ---
[facility] CIWA - CIWA Score Nausea/Vomitin-No Nausea/No Vomiting Muscle Tremors: 4-Moderate,w/Arms Extend Anxiety: 4-Mod. Anxious/Guarded Agitation: 4-Moderately Restless Paroxysmal Sweats: 3 Orientation: 0-Oriented Tacttile Disturbances: 0-None Auditory Disturbances: 0-None Visual Disturbances: 0-None Headache: 0-None Present CIWA-Ar Total Score: 15 S COWS - Scale Resting Pulse: 0= [place] 80 or Below Sweatin=Flushed/Facial Moisture Restless Observation: 1= Difficult to Sit Still Pupil Size: 0= Normal to Room Light Bone or Joint Aches: 1= Mild Discomfort Runny Nose/ Eye Tearin= Nasal Congestion GI Upset > 30mins: 2= Nausea/Diarrhea Tremor Observation of Outstretched Hands: 2= Slight Tremor Visible Yawning Observation: 1= 1-2x During Session Anxiety or Irritability: 2=Irritable/Anxious Goose Flesh Skin: 0=Smooth Skin COWS Score: 12 S Progress Note (SOAP) Subjective: Anxiety,tremors,sweating,interrupted sleep,muscle aches/spasm. Objective: 01/23/17 10:10 Vital Signs - 8 hr 01/23/17 01/23/17 03:50 06:14 Temperature 96 F L Pulse Rate 76 Respiratory 18 18 Rate Blood Pressure 127/91 Laboratory Tests 01/22/17 01/23/17 17:00 07:00 WBC 4.4 D RBC 5.04 Hgb 15.2 Hct 45.5 MCV 90.2 MCHC 33.5 RDW 14.0 Plt Count 283 D MPV 8.0 Urine Color Dkyellow Urine Appearance Clear Urine pH 5.0 D Ur Specific [place] 1.027 Urine Protein Negative Urine Glucose (UA) Negative Urine Ketones Negative Urine Blood Negative Urine Nitrite Negative Urine Bilirubin Negative Urine Urobilinogen Negative Ur Leukocyte Esterase Negative labs noted Assessment: 01/23/17 10:11 Withdrawal sx. Plan: Continue detox
[2017-01-23 10:19] LABS: ALBUMIN 3.9 g/dl (3.4-5.0); ALK PHOS 112 U/L (45-117); ANION GAP 9 (8-16); BILIRUBIN,TOTAL 0.5 mg/dL (0.2-1.0); CALCIUM 9.3 mg/dL (8.5-10.1); CO2 28 mmol/L (21-32); CREATININE 0.7 mg/dL (0.7-1.3); GLUCOSE,RANDOM 98 mg/dL (74-106); SGOT/AST 19 U/L (15-37); SGPT/ALT 28 U/L (12-78); TOT PROT 7.5 g/dl (6.4-8.2)
[2017-01-23] MEDS: NICOTINE 21 MG/24 HOURS TOPICAL PATCH TD SCH (10:24)
[2017-01-23] MEDS: NICOTINE POLACRILEX 2 MG GUM BC PRN (10:25)
[2017-01-23 10:26] VITALS: BP 123/87; PULSE 75; TEMP 96.3
[2017-01-23] MEDS ORDERED: cloNIDine HCL 0.1 MG TABLET PO SCH (10:36)
[2017-01-23] MEDS ORDERED: ONDANSETRON *ODT* 4 MG TABLET SL ONE (10:37)
[2017-01-23] MEDS ORDERED: chlordiazePOXIDE HCL 25 MG CAPSULE PO SCH (11:00)
--- NOTE | 2017-01-23 12:42 | EKG ---
Test Reason : Blood Pressure : / mmHG Vent. Rate : 083 BPM Atrial Rate : 083 BPM P-R Int : 144 ms QRS Dur : 096 ms QT Int : 366 ms P-R-T Axes : 044 007 042 degrees QTc Int : 430 ms NORMAL SINUS RHYTHM NORMAL ECG WHEN COMPARED WITH ECG OF 08-NOV-2016 18:07, NO SIGNIFICANT CHANGE WAS FOUND Confirmed by FELISHA CARROLL MD ([id number]) on 01/23/2017 12:42:08 PM Referred By: Confirmed By:FELISHA CARROLL MD
--- NOTE | 2017-01-23 13:03 | CONSULT ---
[facility] Psychiatric Consult - Data Date of interview: 01/23/17 Admission source: [facility] Identifying data: Not found.Nursing staff informs this display card writer that the patient declined to pursue treatment and left the unit.
[2017-01-24] MEDS ORDERED: diazePAM 5 MG TABLET PO SCH (10:00)
[2017-01-24] MEDS ORDERED: METHADONE HCL 5 MG TABLET (FOR DETOX USE ONLY) PO SCH ×2 (10:00)
[2017-01-24] MEDS ORDERED: chlordiazePOXIDE HCL 25 MG CAPSULE PO SCH (11:00)
[2017-01-25] MEDS ORDERED: METHADONE HCL 10 MG TABLET (FOR DETOX USE ONLY) PO SCH (10:00)
[2017-01-25] MEDS ORDERED: chlordiazePOXIDE HCL 10 MG CAPSULE PO SCH (11:00)
[2017-01-26] MEDS ORDERED: METHADONE HCL 5 MG TABLET (FOR DETOX USE ONLY) PO SCH (06:00)
[2017-01-26] MEDS ORDERED: METHADONE HCL 10 MG TABLET (FOR DETOX USE ONLY) PO SCH (10:00)
[2017-01-26] MEDS ORDERED: diazePAM 5 MG TABLET PO SCH (10:00)
[2017-01-27] MEDS ORDERED: METHADONE HCL 5 MG TABLET (FOR DETOX USE ONLY) PO SCH (06:00)
--- NOTE | 2017-02-04 19:44 | DS ---
[facility] Detox Discharge Summary Admission Date: 01/22/17 Discharge Date: 01/23/17 - History Present History: Alcohol Dependence, Cannabis Dependence, Cocaine Dependence, Opioid Dependence Pertinent Past History: ADHD Obesity - Physical Exam Results Vital Signs: Vital Signs Temperature 96.3 F L 01/23/17 10:26 Pulse Rate 75 01/23/17 10:26 Respiratory Rate 18 01/23/17 10:26 Blood Pressure 123/87 01/23/17 10:26 O2 Sat by Pulse Oximetry (%) Pertinent Admission Physical Exam Findings: Withdrawal sx. Laboratory Last Values WBC 4.4 K/mm3 (4.0-10.0) D 01/23/17 07:00 RBC 5.04 M/mm3 (4.00-5.60) 01/23/17 07:00 Hgb 15.2 GM/dL (11.7-16.9) 01/23/17 07:00 Hct 45.5 % (35.4-49) 01/23/17 07:00 MCV 90.2 fl (80-96) 01/23/17 07:00 MCHC 33.5 g/dl (32.0-35.9) 01/23/17 07:00 RDW 14.0 % (11.9-15.9) 01/23/17 07:00 Plt Count 283 K/MM3 (134-434) D 01/23/17 07:00 MPV 8.0 fl (7.5-11.1) 01/23/17 07:00 Sodium 139 mmol/L (136-145) 01/23/17 07:00 Potassium 4.3 mmol/L (3.5-5.1) 01/23/17 07:00 Chloride 102 mmol/L (98-107) 01/23/17 07:00 Carbon Dioxide 28 mmol/L (21-32) 01/23/17 07:00 Anion Gap 9 (8-16) 01/23/17 07:00 BUN 16 mg/dL (7-18) D 01/23/17 07:00 Creatinine 0.7 mg/dL (0.7-1.3) D 01/23/17 07:00 Creat Clearance w eGFR > 60 (>60) 01/23/17 07:00 Random Glucose 98 mg/dL (74-106) 01/23/17 07:00 Calcium 9.3 mg/dL (8.5-10.1) 01/23/17 07:00 Total Bilirubin 0.5 mg/dL (0.2-1.0) D 01/23/17 07:00 AST 19 U/L (15-37) D 01/23/17 07:00 ALT 28 U/L (12-78) D 01/23/17 07:00 Alkaline Phosphatase 112 U/L (45-117) 01/23/17 07:00 Total Protein 7.5 g/dl (6.4-8.2) 01/23/17 07:00 Albumin 3.9 g/dl (3.4-5.0) 01/23/17 07:00 Urine Color Dkyellow 01/22/17 17:00 Urine Appearance Clear 01/22/17 17:00 Urine pH 5.0 (5.0-8.0) D 01/22/17 17:00 Ur Specific [place] 1.027 (1.001-1.035) 01/22/17 17:00 Urine Protein Negative (NEGATIVE) 01/22/17 17:00 Urine Glucose (UA) Negative (NEGATIVE) 01/22/17 17:00 Urine Ketones Negative (NEGATIVE) 01/22/17 17:00 Urine Blood Negative (NEGATIVE) 01/22/17 17:00 Urine Nitrite Negative (NEGATIVE) 01/22/17 17:00 Urine Bilirubin Negative (NEGATIVE) 01/22/17 17:00 Urine Urobilinogen Negative E.U./dl (0.2-1.0) 01/22/17 17:00 Ur Leukocyte Esterase Negative (NEGATIVE) 01/22/17 17:00 RPR Titer Nonreactive (NONREACTIVE) 01/23/17 07:00 labs noted - Treatment Patient has Accepted a Rehab Referral to: IOP at [facility] - Medication Discharge Medications: Ambulatory Orders Albuterol Sulfate Inhaler - [Ventolin Hfa Inhaler -] 2 inh PO Q4H PRN 11/08/16 Alprazolam [Xanax] 1 mg PO QID 11/08/16 Dextroamphetamine/Amphetamine [Adderall 10 mg Tablet] 30 mg PO TID 11/08/16 Bupropion HCl [Wellbutrin Xl] 300 mg PO DAILY #30 tab.er.24h 11/09/16 - Diagnosis (1) Alcohol dependence with uncomplicated withdrawal Status: Acute (2) Cocaine dependence Status: Acute Qualifiers: Substance use status: uncomplicated Qualified Code(s): F14.20 - Cocaine dependence, uncomplicated (3) Marijuana dependence Status: Acute (4) Opioid dependence with withdrawal Status: Acute (5) Sedative, hypnotic or anxiolytic dependence with withdrawal, uncomplicated Status: Acute (6) ADHD (attention deficit hyperactivity disorder) Status: Chronic Qualifiers: Attention deficit-hyperactivity disorder type: unspecified Qualified Code(s): F90.9 - Attention-deficit hyperactivity disorder, unspecified type (7) Asthma Status: Chronic - AMA Did Patient Leave Against Medical Advice: Yes
== END 2017-01-23 12:25 | disposition left against medical advice (07) | DRG 770 ==
LOC: YASAS 11:48 → Y3N 13:32
PROVIDERS: ADMIT Internal Medicine; ATTEND Internal Medicine
PROC: HZ2ZZZZ Detoxification Services for Substance Abuse Treatment (ICD-10-PCS; principal; 2017-01-22)
DX: F11.23 Opioid dependence with withdrawal (principal); F13.230 Sedative, hypnotic or anxiolytic dependence with withdrawal, uncomplicated; F10.10 Alcohol abuse, uncomplicated; F17.210 Nicotine dependence, cigarettes, uncomplicated; F90.9 Attention-deficit hyperactivity disorder, unspecified type; F32.9 Major depressive disorder, single episode, unspecified; J45.909 Unspecified asthma, uncomplicated; E66.9 Obesity, unspecified; Z68.35 Body mass index [BMI] 35.0-35.9, adult; M51.16 Intervertebral disc disorders with radiculopathy, lumbar region; K03.81 Cracked tooth
CPT/HCPCS: 36415; 80053; 81003; 85027; 86593; 93005; 93010